=== PATIENT | female | born 1945 | race Caucasian/White ===

== ENCOUNTER 2016-04-26 08:37 | Outpatient (CLI) | payer OTHER ==
[2016-01-11 21:41] VITALS: BP 130/58
== END 2016-04-26 08:40 ==
LOC: LAB 08:37
PROVIDERS: ATTEND Internal Medicine
DX: Z51.81 Encounter for therapeutic drug level monitoring (principal); Z79.01 Long term (current) use of anticoagulants; I48.0 Paroxysmal atrial fibrillation
CPT/HCPCS: 36415; 85610

== ENCOUNTER 2016-05-10 11:26 | Outpatient (CLI) | payer OTHER ==
[2016-01-11 21:41] VITALS: BP 130/58
== END 2016-05-10 11:27 ==
LOC: LAB 11:26
PROVIDERS: ATTEND Internal Medicine
DX: Z51.81 Encounter for therapeutic drug level monitoring (principal); Z79.01 Long term (current) use of anticoagulants; I48.0 Paroxysmal atrial fibrillation
CPT/HCPCS: 36415; 85610

== ENCOUNTER 2016-05-24 13:35 | Outpatient (CLI) | payer OTHER ==
[2016-01-11 21:41] VITALS: BP 130/58
== END 2016-05-24 13:36 ==
LOC: LAB 13:35
PROVIDERS: ATTEND Internal Medicine
DX: Z51.81 Encounter for therapeutic drug level monitoring (principal); Z79.01 Long term (current) use of anticoagulants; I48.0 Paroxysmal atrial fibrillation
CPT/HCPCS: 36415; 85610

== ENCOUNTER 2016-06-17 11:02 | Outpatient (CLI) | payer OTHER ==
[2016-01-11 21:41] VITALS: BP 130/58
== END 2016-06-17 11:03 ==
LOC: LAB 11:02
PROVIDERS: ATTEND Internal Medicine
DX: I48.0 Paroxysmal atrial fibrillation (principal); Z79.01 Long term (current) use of anticoagulants
CPT/HCPCS: 36415; 85610

== ENCOUNTER 2016-07-29 13:17 | Outpatient (CLI) | payer OTHER ==
[2016-01-11 21:41] VITALS: BP 130/58
== END 2016-07-29 13:18 ==
LOC: LAB 13:17
PROVIDERS: ATTEND Internal Medicine
DX: Z51.81 Encounter for therapeutic drug level monitoring (principal); Z79.01 Long term (current) use of anticoagulants; I48.0 Paroxysmal atrial fibrillation
CPT/HCPCS: 36415; 85610

== ENCOUNTER 2016-09-26 12:21 | Outpatient (CLI) | payer OTHER ==
[2016-01-11 21:41] VITALS: BP 130/58
== END 2016-09-26 12:22 ==
LOC: LAB 12:21
PROVIDERS: ATTEND Internal Medicine
DX: I48.91 Unspecified atrial fibrillation (principal); Z79.01 Long term (current) use of anticoagulants
CPT/HCPCS: 36415; 85610

== ENCOUNTER 2016-11-07 11:55 | Outpatient (CLI) | payer OTHER ==
[2016-01-11 21:41] VITALS: BP 130/58
== END 2016-11-07 11:56 ==
LOC: LAB 11:55
PROVIDERS: ATTEND Internal Medicine
DX: I48.0 Paroxysmal atrial fibrillation (principal)
CPT/HCPCS: 36415; 85610

== ENCOUNTER 2016-12-19 13:54 | Outpatient (CLI) | payer OTHER ==
[2016-01-11 21:41] VITALS: BP 130/58
== END 2016-12-19 13:55 ==
LOC: LAB 13:54
PROVIDERS: ATTEND Internal Medicine
DX: I48.0 Paroxysmal atrial fibrillation (principal)
CPT/HCPCS: 36415; 85610

== ENCOUNTER 2017-01-30 14:22 | Outpatient (CLI) | payer OTHER ==
[2016-01-11 21:41] VITALS: BP 130/58
== END 2017-01-30 14:23 ==
LOC: LAB 14:22
PROVIDERS: ATTEND Internal Medicine
DX: I48.0 Paroxysmal atrial fibrillation (principal); Z79.01 Long term (current) use of anticoagulants
CPT/HCPCS: 36415; 85610

== ENCOUNTER → 2017-02-13 | Outpatient (CLI) | payer OTHER ==
[2016-01-11 21:41] VITALS: BP 130/58
== END ==
LOC: LAB 13:56
PROVIDERS: ATTEND Internal Medicine
DX: I48.0 Paroxysmal atrial fibrillation (principal); Z79.01 Long term (current) use of anticoagulants
CPT/HCPCS: 36415; 85610

== ENCOUNTER 2017-03-13 10:33 | Outpatient (CLI) | payer OTHER ==
[2016-01-11 21:41] VITALS: BP 130/58
== END 2017-03-13 10:34 ==
LOC: LAB 10:33
PROVIDERS: ATTEND Internal Medicine
DX: I48.0 Paroxysmal atrial fibrillation (principal); Z79.01 Long term (current) use of anticoagulants
CPT/HCPCS: 36415; 85610

== ENCOUNTER 2017-03-29 14:03 | Outpatient (CLI) | payer OTHER ==
[2016-01-11 21:41] VITALS: BP 130/58
== END 2017-03-29 14:04 ==
LOC: LAB 14:03
PROVIDERS: ATTEND Internal Medicine
DX: I48.0 Paroxysmal atrial fibrillation (principal); Z79.01 Long term (current) use of anticoagulants
CPT/HCPCS: 36415; 85610

== ENCOUNTER 2017-04-13 12:51 | Outpatient (CLI) | payer OTHER ==
[2016-01-11 21:41] VITALS: BP 130/58
== END 2017-04-13 13:00 ==
LOC: LAB 12:51
PROVIDERS: ATTEND Internal Medicine
DX: I48.0 Paroxysmal atrial fibrillation (principal)
CPT/HCPCS: 36415; 85610

== ENCOUNTER 2017-05-16 16:24 | Outpatient (CLI) | payer OTHER ==
[2016-01-11 21:41] VITALS: BP 130/58
== END 2017-05-16 16:25 ==
LOC: LAB 16:24
PROVIDERS: ATTEND Internal Medicine
DX: I48.0 Paroxysmal atrial fibrillation (principal); Z79.899 Other long term (current) drug therapy
CPT/HCPCS: 36415; 85610

== ENCOUNTER 2017-06-12 13:27 | Outpatient (CLI) | payer OTHER ==
[2016-01-11 21:41] VITALS: BP 130/58
== END 2017-06-12 13:30 ==
LOC: LAB 13:27
PROVIDERS: ATTEND Internal Medicine
DX: I48.0 Paroxysmal atrial fibrillation (principal); Z79.899 Other long term (current) drug therapy
CPT/HCPCS: 36415; 85610

== ENCOUNTER 2017-07-18 14:07 | Outpatient (CLI) | payer OTHER ==
[2016-01-11 21:41] VITALS: BP 130/58
== END 2017-07-18 14:10 ==
LOC: LAB 14:07
PROVIDERS: ATTEND Internal Medicine
DX: I48.0 Paroxysmal atrial fibrillation (principal); Z79.899 Other long term (current) drug therapy
CPT/HCPCS: 36415; 85610

== ENCOUNTER 2017-08-01 13:40 | Outpatient (CLI) | payer OTHER ==
[2016-01-11 21:41] VITALS: BP 130/58
== END 2017-08-01 13:42 ==
LOC: LAB 13:40
PROVIDERS: ATTEND Internal Medicine
DX: Z79.899 Other long term (current) drug therapy (principal); I48.0 Paroxysmal atrial fibrillation
CPT/HCPCS: 36415; 85610

== ENCOUNTER 2017-09-05 13:16 | Outpatient (CLI) | payer OTHER ==
[2016-01-11 21:41] VITALS: BP 130/58
== END 2017-09-05 13:18 ==
LOC: LAB 13:16
PROVIDERS: ATTEND Internal Medicine
DX: I48.0 Paroxysmal atrial fibrillation (principal); Z79.899 Other long term (current) drug therapy
CPT/HCPCS: 36415; 85610

== ENCOUNTER 2017-10-10 14:19 | Outpatient (CLI) | payer OTHER ==
[2016-01-11 21:41] VITALS: BP 130/58
== END 2017-10-10 14:20 ==
LOC: LAB 14:19
PROVIDERS: ATTEND Internal Medicine
DX: I48.0 Paroxysmal atrial fibrillation (principal); Z79.01 Long term (current) use of anticoagulants
CPT/HCPCS: 36415; 85610

== ENCOUNTER 2017-11-15 15:42 | Outpatient (CLI) | payer OTHER ==
[2016-01-11 21:41] VITALS: BP 130/58
== END 2017-11-15 15:44 ==
LOC: LAB 15:42
PROVIDERS: ATTEND Internal Medicine
DX: I48.91 Unspecified atrial fibrillation (principal); Z79.01 Long term (current) use of anticoagulants
CPT/HCPCS: 36415; 85610

== ENCOUNTER 2017-12-28 13:48 | Outpatient (CLI) | payer OTHER ==
[2016-01-11 21:41] VITALS: BP 130/58
== END 2017-12-28 13:50 ==
LOC: LAB 13:48
PROVIDERS: ATTEND Internal Medicine
DX: I48.0 Paroxysmal atrial fibrillation (principal); Z79.01 Long term (current) use of anticoagulants
CPT/HCPCS: 36415; 85610

== ENCOUNTER 2018-02-09 13:02 | Outpatient (CLI) | payer OTHER ==
[2016-01-11 21:41] VITALS: BP 130/58
== END 2018-02-09 13:03 ==
LOC: LAB 13:02
PROVIDERS: ATTEND Internal Medicine
DX: I48.0 Paroxysmal atrial fibrillation (principal); Z79.01 Long term (current) use of anticoagulants
CPT/HCPCS: 36415; 85610

== ENCOUNTER 2018-03-22 12:54 | Outpatient (CLI) | payer OTHER ==
[2016-01-11 21:41] VITALS: BP 130/58
== END 2018-03-22 12:55 ==
LOC: LAB 12:54
PROVIDERS: ATTEND Internal Medicine
DX: Z79.01 Long term (current) use of anticoagulants (principal); I48.91 Unspecified atrial fibrillation
CPT/HCPCS: 36415; 85610

== ENCOUNTER 2018-05-03 14:39 | Outpatient (CLI) | payer OTHER ==
[2016-01-11 21:41] VITALS: BP 130/58
== END 2018-05-03 14:42 ==
LOC: LAB 14:39
PROVIDERS: ATTEND Internal Medicine
DX: I48.91 Unspecified atrial fibrillation (principal); Z79.01 Long term (current) use of anticoagulants
CPT/HCPCS: 36415; 85610

== ENCOUNTER 2018-06-14 11:00 | Outpatient (CLI) | payer OTHER ==
[2016-01-11 21:41] VITALS: BP 130/58
== END 2018-06-14 11:03 ==
LOC: LAB 11:00
PROVIDERS: ATTEND Internal Medicine
DX: I48.91 Unspecified atrial fibrillation (principal); Z79.01 Long term (current) use of anticoagulants
CPT/HCPCS: 36415; 85610